=== PATIENT | male | born 1995 | race Caucasian/White ===

== ENCOUNTER 2024-12-10 09:09 | Outpatient (CLI) | payer BC, SELFPAY ==
[2024-12-10 09:39] LABS: Hematocrit 45.7 % (42.0-52.0); Hemoglobin 15.9 g/dL (14.0-18.0); Mean Corpuscular HGB Conc 34.8 g/dl (32-36); Mean Corpuscular Hemoglobin 29.6 pg (26-34); Mean Corpuscular Volume 84.9 fl (80-100); Mean Platelet Volume 8.7 fl (7.4-10.4); Platelet Count Result 301 k/mm3 (150-375); Red Blood Count 5.38 M/mm3 (4.6-6.20); Red Cell Distribution Width 12.1 % (11.5-14.5); White Blood Count 7.6 K/mm3 (4.5-10.0)
[2024-12-10 09:55] LABS: Alanine Aminotransferase 80 U/L (6-50); Albumin Level 4.1 g/dL (3.5-5.1); Alkaline Phosphatase 85 U/L (38-126); Anion Gap 8 mmol/L (4-12); Aspartate Amino Transferase 43 U/L (17-59); Bilirubin,Total 0.6 mg/dL (0.2-1.3); Blood Urea Nitrogen 16 mg/dL (9-20); Calcium 8.8 mg/dL (8.4-10.2); Carbon Dioxide 24 mmol/L (22-30); Chloride 107 mmol/L (98-107); Cholesterol 271 mg/dL (0-200); Estimated Glomerular Filt Rate > 60; Glucose 106 mg/dL (65-110); HDL Direct 27 mg/dL; Potassium 4.4 mmol/L (3.4-5.0); Sodium 139 mmol/L (137-145); Triglycerides 462 mg/dL (<150)
[2024-12-10 10:07] LABS: LDL Cholesterol Direct 136 mg/dL
[2024-12-10 10:10] LABS: Hemoglobin A1C 5.1 % (<5.7)
--- OUTSIDE RECORDS SUMMARY | 2024-12-16 05:54 | XMS_ITS | Clinical Summary ---
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 Phone No, Physician Primary Care Provider [phone] Allergies No known active allergies Medications No known medications Active Problems No known active problems Social History Tobacco Use Types Packs/Day Years Used Date Smoking Tobacco: Never Tobacco Cessation:Counseling Given: Not Answered Personal Safety Answer Date Recorded Getting School Help Needed Not on file 01/24 Sex and Gender Information Value Date Recorded Sex Assigned at Not on file Legal Sex Male 8:54 AM CDT Gender Identity Not on file Sexual Orientation Not on file Obstetrics History Last Filed Vital Signs Vital Sign Reading Time Taken Comments Blood Pressure 132/85 07/25/2022 2:36 PM CDT Pulse 101 07/25/2022 2:36 PM CDT Temperature 37.6 ??C (99.7 ??F) 07/25/2022 2:36 PM CD T Respiratory Rate 16 07/25/2022 2:36 PM CDT Oxygen Saturation 96% 07/25/2022 2:36 PM CDT Inhaled Oxygen Concentration - - Weight 120.7 kg (266 lb) 07/25/2022 2:36 PM CDT Height 180.3 cm (5' 11 ) 07/25/2022 2:36 PM CDT Body Mass Index 37.1 07/25/2022 2:36 PM CDT Plan of Treatment Health Maintenance Due Date Last Done Comments Depression Screening 1997 Hepatitis C Screening 1997 DTaP/Tdap/Td Vaccine (1 - Tdap) 2008 Varicella Vaccines (1 of 2 - 13+ 2-dose series) 2010 Hepatitis B Screening 2015 Regular Well Visit/Exam 18-64 2015 Influenza Vaccine (#1) 2024 HPV Vaccines Aged Out No longer eligi ble based on patient's age to complete this topic Pneumococcal vaccine <65 Aged Out No longer eligible based on patient's age to complete this topic Insurance [employer] [facility] Address: [place] [address] Care Teams 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
--- OUTSIDE RECORDS SUMMARY | 2024-12-16 05:54 | XMS_ITS | Referral Summary ---
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 OOS Care Teams Vigoureux Printer Relationship Specialty Start Date End Date No, Physician PCP - General 07/25/22
== END 2024-12-10 09:10 | disposition home or self-care (01) ==
LOC: ANHLAB 09:11
PROVIDERS: PCP Nurse Practitioner; Visit Provider Nurse Practitioner
DX: Z00.00 Encounter for general adult medical examination without abnormal findings (principal); E66.9 Obesity, unspecified; Z68.30 Body mass index [BMI] 30.0-30.9, adult
CPT/HCPCS: 36415; 80053; 80061; 83036; 84443; 85027

== ENCOUNTER 2025-07-13 10:00 | Outpatient (RCR) | payer BC, SELFPAY ==
[2025-06-15 09:27] VITALS: BMI 38.7
--- NOTE | 2025-06-15 09:55 | PCDIET ---
Nutrition consult complete. Thank you for the referral!
== END 2025-08-29 08:51 | disposition home or self-care (01) ==
LOC: ANHDMC 10:00
PROVIDERS: PCP Nurse Practitioner; Visit Provider Nurse Practitioner
DX: E66.9 Obesity, unspecified (principal); Z71.3 Dietary counseling and surveillance
CPT/HCPCS: 97802